=== PATIENT | female | born 1995 | race Caucasian/White ===

== ENCOUNTER 2017-04-14 09:25 | Emergency (ER) | payer OTHER ==
[2017-04-14 09:38] VITALS: BP 120/85
--- NOTE | 2017-04-14 12:56 | ED Physician Documentation ---
PD HPI FEMALE - Stated complaint Stated Complaint: FEMALE - Chief complaint Chief Complaint: General - History obtained from History obtained from: Patient - History of Present Illness Timing - onset: Today Timing - duration: Hours Timing - details: Abrupt onset, Still present Associated symptoms: Vaginal pain Contributing factors: Other (recently placed on abx to lower vaginal pH.) Similar symptoms before: Diagnosis (bartholins duct cyst.) Recently seen: Clinic - Additional information Additional information: 21-year-old female with a history of Bartholin's duct cyst has developed pain this morning in the area of her cyst with some enlargement of the cyst. She has pain especially when she is standing or sitting. She has not had this cyst drained previously. She has seen her SVP doctor recently about chronic vaginal yeast and she has been placed onto a medication to reduce the pH. Review of Systems Constitutional: denies: Fever, Chills, Myalgias Eyes: denies: Decreased vision Ears: denies: Ear pain Nose: denies: Congestion Throat: denies: Sore throat Cardiac: denies: Chest pain / pressure Respiratory: denies: Cough GI: denies: Abdominal Pain, Vomiting : reports: Other (finishing menses now). denies: Dysuria, Frequency Skin: denies: Rash, Lesions Musculoskeletal: denies: Neck pain, Back pain PD PAST MEDICAL HISTORY - Past Medical History Past Medical History: No - Past Surgical History Past Surgical History: No - Present Medications Home Medications: Ambulatory Orders Medication Instructions Recorded Confirmed Escitalopram [Lexapro] 10 mg PO DAILY 04/14/17 04/14/17 Unknown Antibiotic 04/14/17 - Allergies Allergies/Adverse Reactions: Allergies Allergy/AdvReac Type Severity Reaction Status Date / Time No Known Drug Allergies Allergy Verified 04/14/17 09:39 - Social History Does the pt smoke?: No Smoking Status: Never smoker PD ED PE NORMAL - Vitals Vital signs reviewed: Yes (hypertensive ) - General General: No acute distress, Well developed/nourished - HEENT HEENT: Atraumatic, PERRL - Respiratory Respiratory: No respiratory distress - Female Female : Grid Caster present (Alisa), Other (There is no palpable mass and the patient is able to demonstrate where this was and does not feel the mass herself she state she feels it went down. ) - Derm Derm: Normal color, Warm and dry, No rash - Extremities Extremities: No deformity, No edema - Neuro Neuro: No motor deficit Eye Opening: Spontaneous Motor: Obeys Commands Verbal: Oriented GCS Score: 15 - Psych Psych: Normal mood, Normal affect Results - Vitals Vitals: Vital Signs - 24 hr 04/14/17 09:35 Temperature 36.6 C Heart Rate 67 Respiratory 16 Rate Blood Pressure 120/85 H O2 Saturation 100 Oxygen O2 Source Room air PD MEDICAL DECISION MAKING - ED course Complexity details: reviewed results, re-evaluated patient, considered differential, d/w patient ED course: 21-year-old female with a history of Bartholin's duct cyst has developed acute swelling of the cyst and this has been painful to stand or walk or sit. She is coming to the emergency department today and on evaluation the cyst is now deflated she does continue to have some pain. She is instructed to follow-up with her SVP doctor as needed. Departure - Departure Disposition: 01 Home, Self Care Clinical Impression: Bartholin's duct cyst Condition: Stable Instructions: ED Bartholins Cyst No Infec Follow-Up: [facility] [Provider Group] Discharge Date/Time: 04/14/17 13:12
[2017-04-14] MEDS ORDERED: IBUPROFEN 600 MG TABLET PO STA (13:09)
[2017-04-14] MEDS ORDERED: IBUPROFEN 600 MG TABLET PO ONE (13:15)
== END 2017-04-14 13:12 | disposition home or self-care (01) ==
LOC: ED 09:25
DX: N75.0 Cyst of Bartholin's gland (principal)
CPT/HCPCS: 99282; 99283; A9270

== ENCOUNTER 2017-07-21 12:37 | Emergency (ER) | payer OTHER ==
[2017-07-21 12:44] VITALS: BP 133/79
--- NOTE | 2017-07-21 15:14 | ED Physician Documentation ---
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 Concerned that it will become painful and possibly infected. Has never had this drained. [place]. No fevers. No vomiting. She is not , breast-feeding or trying to become . Not on OCP's Review of Systems Constitutional: denies: Fever, Chills Respiratory: denies: Cough GI: denies: Vomiting, Diarrhea : denies: Dysuria, Frequency, Hesitancy, Discharge, Now EGA Skin: denies: Rash PD PAST MEDICAL HISTORY - Past Medical History Past Medical History: No - Past Surgical History Past Surgical History: No - Present Medications Home Medications: Ambulatory Orders Medication Instructions Recorded Confirmed Escitalopram [Lexapro] 10 mg PO DAILY 04/14/17 04/14/17 Cephalexin [Keflex] 500 mg PO Q6H #28 capsule 07/21/17 - Allergies Allergies/Adverse Reactions: Allergies Allergy/AdvReac Type Severity Reaction Status Date / Time No Known Drug Allergies Allergy Verified 07/21/17 12:44 - Social History Does the pt smoke?: No Smoking Status: Never smoker PD ED PE NORMAL - Vitals Vital signs reviewed: Yes - General General: Alert and oriented X 3, No acute distress - HEENT HEENT: Moist mucous membranes - Neck Neck: Supple, no meningeal sign - Cardiac Cardiac: RRR - Respiratory Respiratory: No respiratory distress, Clear bilaterally - Abdomen Abdomen: Soft, Non tender, Non distended - Female Female : Translator Deaf present (Nora Mcadams RN), Other (small 0.5cm indurated area to the posterior aspect of the L labia. no skin changes. no fluctuance. ) - Derm Derm: Warm and dry - Neuro Neuro: Alert and oriented X 3 - Psych Psych: Normal mood, Normal affect Results - Vitals Vitals: Vital Signs - 24 hr 07/21/17 12:40 Temperature 37.0 C Heart Rate 66 Respiratory 16 Rate Blood Pressure 133/79 H O2 Saturation 99 Oxygen O2 Source Room air PD MEDICAL DECISION MAKING - ED course Complexity details: reviewed old records, re-evaluated patient, considered differential, d/w patient, d/w customer support consultant ED course: Patient is a 21-year-old female who presents to the emergency department what appears to be a small Bartholin's cyst. Does not appear yet infected but may be early, therefore will cover with Keflex. No incision and drainage needed at this time. Will soak in warm water as well to see if this helps it drained spontaneously. Discussed the case with Dr. Weber, gynecology on-call at [facility] who will follow the patient up in clinic. Patient counseled regarding signs and symptoms for which I believe and urgent re- evaluation would be necessary. Patient with good understanding of and agreement to plan and is comfortable going home at this time This document was made in part using voice recognition software. While efforts are made to proofread this document, sound alike and grammatical errors may occur. Departure - Departure Disposition: 01 Home, Self Care Clinical Impression: Bartholin's duct cyst Condition: Good Instructions: ED Bartholins Cyst No Infec Follow-Up: [facility] [Provider Group] Raisa Weber MD [Provider Admit Priv/Credential] - (Gynecology Clinic [facility] ) Prescriptions: Cephalexin [Keflex] 500 mg PO Q6H #28 capsule Comments: Take all antibiotics until gone. Return if you worsen. [place] [facility]necology Clinic [facility] call for an appointment. Discharge Date/Time: 07/21/17 15:26
== END 2017-07-21 15:26 | disposition home or self-care (01) ==
LOC: ED 12:37
DX: N75.0 Cyst of Bartholin's gland (principal)
CPT/HCPCS: 99283